=== PATIENT | male | born 1955 | race Caucasian/White ===

== ENCOUNTER 2018-08-26 17:51 | Outpatient (REF) | payer MEDICARE, SELFPAY ==
[2018-08-26 22:31] LABS: ALT 51 U/L (12-78); AST 27 U/L (15-37); Albumin 4.2 g/dL (3.4-5.0); Alkaline Phosphatase 109 U/L (46-116); Anion Gap 9.6 mmol/L (3-11); BUN 18 mg/dL (7-18); Bilirubin, Total 0.5 mg/dL (0.2-1.0); CO2 28.4 mmol/L (21.0-32.0); CREATININE 1.08 mg/dL (0.70-1.30); Calcium 9.5 mg/dL (8.5-10.1); Chloride 104 mmol/L (98-107); Glucose 129 mg/dL (70-100); Potassium 4.5 mmol/L (3.5-5.1); Sodium 142 mmol/L (136-145); Total Protein 7.1 g/dL (6.4-8.2)
== END 2018-08-26 18:11 ==
LOC: NCHCN 17:51
PROVIDERS: PCP Family Medicine; Visit Provider Family Medicine
DX: E78.5 Hyperlipidemia, unspecified (principal); I10 Essential (primary) hypertension
CPT/HCPCS: 80053

== ENCOUNTER 2020-08-10 08:13 | Outpatient (REF) | payer MEDICARE, SELFPAY ==
[2020-08-10 22:39] LABS: ALT 35 U/L (16-63); AST 20 U/L (15-37); Albumin 4.2 g/dL (3.4-5.0); Alkaline Phosphatase 104 U/L (46-116); Anion Gap 7.8 mmol/L (3-11); BUN 15 mg/dL (7-18); Bilirubin, Total 0.3 mg/dL (0.2-1.0); CO2 28.2 mmol/L (21.0-32.0); CREATININE 1.29 mg/dL (0.70-1.30); Calcium 9.8 mg/dL (8.5-10.1); Calculated LDL 42 mg/dL (<100); Chloride 107 mmol/L (98-107); Cholesterol 102 mg/dL (<200); Estimated GFR 56.44 (mL/min/1.73m2); Glucose 147 mg/dL (74-106); HDL Cholesterol 48 mg/dL (40-60); Potassium 5.4 mmol/L (3.5-5.1); Sodium 143 mmol/L (136-145); Total Protein 7.4 g/dL (6.4-8.2); Triglyceride 62 mg/dL (<150)
[2020-08-10 22:44] LABS: Hemoglobin A1C 7.9 % (<5.7)
== END 2020-08-10 08:33 ==
LOC: NCHCN 08:13
PROVIDERS: PCP Family Medicine; Visit Provider Family Medicine
DX: E11.65 Type 2 diabetes mellitus with hyperglycemia (principal); E78.5 Hyperlipidemia, unspecified; I10 Essential (primary) hypertension
CPT/HCPCS: 80053; 80061; 83036

== ENCOUNTER 2020-09-22 12:21 | Outpatient (REF) | payer MEDICARE, SELFPAY ==
[2020-09-22 20:57] LABS: Anion Gap 9.5 mmol/L (3-11); BUN 19 mg/dL (7-18); CO2 27.5 mmol/L (21.0-32.0); CREATININE 1.21 mg/dL (0.70-1.30); Calcium 9.7 mg/dL (8.5-10.1); Chloride 106 mmol/L (98-107); Glucose 65 mg/dL (74-106); Potassium 4.9 mmol/L (3.5-5.1); Sodium 143 mmol/L (136-145)
== END 2020-09-22 12:41 ==
LOC: NCHCN 12:21
PROVIDERS: PCP Family Medicine; Visit Provider Family Medicine
DX: I10 Essential (primary) hypertension (principal); E78.5 Hyperlipidemia, unspecified; I35.8 Other nonrheumatic aortic valve disorders
CPT/HCPCS: 80048

== ENCOUNTER 2020-11-22 15:46 | Outpatient (REF) | payer MEDICARE, SELFPAY ==
[2020-11-22 21:56] LABS: COMMENT (LAB VIEW ONLY) 89.02 mg/dL; Microalb ug/mg Crea 13.3 ug/mg Cr
== END 2020-11-22 15:47 | disposition home or self-care (01) ==
LOC: NCHCN 15:46
PROVIDERS: PCP Family Medicine; Visit Provider Family Medicine
DX: E11.65 Type 2 diabetes mellitus with hyperglycemia (principal)
CPT/HCPCS: 82043; 82570

== ENCOUNTER 2021-05-23 16:48 | Outpatient (REF) | payer MEDICARE, SELFPAY ==
[2021-05-23 21:33] LABS: Calculated LDL 49 mg/dL (<100); Cholesterol 113 mg/dL (<200); HDL Cholesterol 46 mg/dL (40-60); Triglyceride 92 mg/dL (<150)
[2021-05-23 21:34] LABS: Hemoglobin A1C 7.7 % (<5.7)
[2021-05-23 21:57] LABS: Anion Gap 9.9 mmol/L (3-11); BUN 22 mg/dL (7-18); CO2 25.1 mmol/L (21.0-32.0); CREATININE 1.4 mg/dL (0.70-1.30); Chloride 105 mmol/L (98-107); Estimated GFR 51.18 (mL/min/1.73m2); Folate 12.6 ng/mL (8.6-20.0); Glucose 332 mg/dL (74-106); Potassium 4.3 mmol/L (3.5-5.1); Sodium 140 mmol/L (136-145); Vitamin B12 80 pg/mL (193-986)
== END 2021-05-23 16:49 | disposition home or self-care (01) ==
LOC: NCHCN 16:48
PROVIDERS: PCP Family Medicine; Referring Provider Family Medicine; Visit Provider Family Medicine
DX: I10 Essential (primary) hypertension (principal); E78.5 Hyperlipidemia, unspecified; D53.9 Nutritional anemia, unspecified; E11.65 Type 2 diabetes mellitus with hyperglycemia
CPT/HCPCS: 80048; 80061; 82607; 82746; 83036

== ENCOUNTER 2021-11-21 16:05 | Outpatient (REF) | payer MEDICARE, SELFPAY ==
[2021-11-21 14:58] LABS: HCT 44.6 % (40.0-50.0); HGB 14.3 g/dL (13.5-17.5); MCH 31.7 pg (27.0-33.0); MCHC 32.1 % (32.0-36.0); MCV 98.9 fL (80-95); MPV 11.1 fL (8.0-11.0); Platelet Count 337 10^3/uL (130-400); RBC 4.51 10^6/uL (4.36-5.78); RDW 14.2 % (11.8-14.1); RDW-SD 51.9 fL
[2021-11-21 16:00] LABS: Anion Gap 12.2 mmol/L (3-11); BUN 21 mg/dL (7-18); CO2 24.8 mmol/L (21.0-32.0); CREATININE 1.2 mg/dL (0.70-1.30); Calcium 10.1 mg/dL (8.5-10.1); Chloride 103 mmol/L (98-107); Glucose 111 mg/dL (74-106); Potassium 4.7 mmol/L (3.5-5.1); Sodium 140 mmol/L (136-145); Vitamin B12 859 pg/mL (193-986)
== END 2021-11-21 16:06 | disposition home or self-care (01) ==
LOC: NCHCN 16:05
PROVIDERS: PCP Family Medicine; Visit Provider Family Medicine
DX: E11.9 Type 2 diabetes mellitus without complications (principal); I10 Essential (primary) hypertension; E53.8 Deficiency of other specified B group vitamins
CPT/HCPCS: 80048; 85027; 82607

== ENCOUNTER 2022-02-20 20:12 | Outpatient (REF) | payer MEDICARE, SELFPAY ==
[2022-02-20 20:05] LABS: COMMENT (LAB VIEW ONLY) 53.65 mg/dL; Microalb ug/mg Crea 15.1 ug/mg Cr
== END 2022-02-20 20:13 | disposition home or self-care (01) ==
LOC: NCHCN 20:12
PROVIDERS: PCP Family Medicine; Visit Provider Family Medicine
DX: E11.9 Type 2 diabetes mellitus without complications (principal)
CPT/HCPCS: 82043; 82570

== ENCOUNTER 2022-07-20 11:58 | Outpatient (REF) | payer MEDICARE, SELFPAY ==
[2022-07-19 22:08] LABS: Anion Gap 11.1 mmol/L (3-11); BUN 18 mg/dL (7-18); CO2 23.9 mmol/L (21.0-32.0); CREATININE 1.2 mg/dL (0.70-1.30); Calcium 9.5 mg/dL (8.5-10.1); Chloride 103 mmol/L (98-107); Estimated GFR 67.53 (mL/min/1.73m2); Glucose 79 mg/dL (74-106); Potassium 4.3 mmol/L (3.5-5.1); Sodium 138 mmol/L (136-145)
== END 2022-07-20 11:59 | disposition home or self-care (01) ==
LOC: NCHCN 11:58
PROVIDERS: PCP Family Medicine; Visit Provider Family Medicine
DX: E11.9 Type 2 diabetes mellitus without complications (principal); I10 Essential (primary) hypertension
CPT/HCPCS: 80048

== ENCOUNTER 2023-01-03 12:32 | Outpatient (REF) | payer MEDICARE, SELFPAY ==
[2023-01-03 15:58] LABS: Anion Gap 10.9 mmol/L (3-11); BUN 26 mg/dL (7-18); CO2 25.1 mmol/L (21.0-32.0); CREATININE 1.5 mg/dL (0.70-1.30); Calcium 9.3 mg/dL (8.5-10.1); Chloride 105 mmol/L (98-107); Estimated GFR 51.35 (mL/min/1.73m2); Glucose 94 mg/dL (74-106); Potassium 4.3 mmol/L (3.5-5.1); Sodium 141 mmol/L (136-145)
[2023-01-03 16:39] LABS: COMMENT (LAB VIEW ONLY) 39.81 mg/dL; Microalb ug/mg Crea 10.6 ug/mg Cr
== END 2023-01-03 12:33 | disposition home or self-care (01) ==
LOC: NCHCN 12:32
PROVIDERS: PCP Family Medicine; Visit Provider Family Medicine
DX: E11.65 Type 2 diabetes mellitus with hyperglycemia (principal); I10 Essential (primary) hypertension
CPT/HCPCS: 80048; 82043; 82570

== ENCOUNTER 2023-01-16 22:10 | Outpatient (REF) | payer MEDICARE, SELFPAY ==
[2023-01-16 22:18] LABS: Anion Gap 10.3 mmol/L (3-11); BUN 30 mg/dL (7-18); CO2 24.7 mmol/L (21.0-32.0); CREATININE 1.3 mg/dL (0.70-1.30); Calcium 9.4 mg/dL (8.5-10.1); Chloride 103 mmol/L (98-107); Estimated GFR 60.96 (mL/min/1.73m2); Glucose 76 mg/dL (74-106); Potassium 4.5 mmol/L (3.5-5.1); Sodium 138 mmol/L (136-145)
== END 2023-01-16 22:11 | disposition home or self-care (01) ==
LOC: NCHCN 22:10
PROVIDERS: PCP Family Medicine; Visit Provider Internal Medicine
DX: E11.65 Type 2 diabetes mellitus with hyperglycemia (principal); M54.59 Other low back pain
CPT/HCPCS: 80048

== ENCOUNTER 2023-02-28 15:49 | Outpatient (REF) | payer MEDICARE, SELFPAY ==
[2023-02-28 15:11] LABS: Anion Gap 14.5 mmol/L (3-11); BUN 14 mg/dL (7-18); CO2 22.5 mmol/L (21.0-32.0); CREATININE 1.5 mg/dL (0.70-1.30); Chloride 108 mmol/L (98-107); Estimated GFR 51.35 (mL/min/1.73m2); Glucose 244 mg/dL (74-106); Potassium 4.2 mmol/L (3.5-5.1); Sodium 145 mmol/L (136-145)
== END 2023-02-28 15:50 | disposition home or self-care (01) ==
LOC: NCHCN 15:49
PROVIDERS: PCP Family Medicine; Visit Provider Family Medicine
DX: I10 Essential (primary) hypertension (principal)
CPT/HCPCS: 80048

== ENCOUNTER 2023-05-07 09:00 | Outpatient (REF) | payer MEDICARE, SELFPAY ==
[2023-05-07 14:25] LABS: Anion Gap 11.8 mmol/L (3-11); BUN 29 mg/dL (7-18); CO2 20.2 mmol/L (21.0-32.0); CREATININE 1.4 mg/dL (0.70-1.30); Calcium 9.2 mg/dL (8.5-10.1); Chloride 107 mmol/L (98-107); Estimated GFR 55.78 (mL/min/1.73m2); Glucose 127 mg/dL (74-106); Potassium 4.9 mmol/L (3.5-5.1); Sodium 139 mmol/L (136-145)
== END 2023-05-07 09:01 | disposition home or self-care (01) ==
LOC: NCHCN 09:00
PROVIDERS: PCP Family Medicine; Visit Provider Family Medicine
DX: R94.4 Abnormal results of kidney function studies (principal); I10 Essential (primary) hypertension; E11.9 Type 2 diabetes mellitus without complications
CPT/HCPCS: 80048

== ENCOUNTER 2023-11-22 15:02 | Outpatient (REF) | payer MEDICARE, SELFPAY ==
[2023-11-22 14:28] LABS: HCT 38.9 % (40.0-50.0); HGB 12.6 g/dL (13.5-17.5); MCH 31.3 pg (27.0-33.0); MCHC 32.4 % (32.0-36.0); MCV 97 fL (80-95); MPV 10.5 fL (8.0-11.0); Platelet Count 383 10^3/uL (130-400); RBC 4.03 10^6/uL (4.36-5.78); RDW 13.9 % (11.8-14.1); RDW-SD 49.1 fL; WBC 7.32 10^3/uL (4.4-10.8)
[2023-11-22 14:36] LABS: Anion Gap 11.8 mmol/L (3-11); BUN 22 mg/dL (7-18); CO2 24.2 mmol/L (21.0-32.0); CREATININE 1.5 mg/dL (0.70-1.30); Calcium 9.9 mg/dL (8.5-10.1); Chloride 105 mmol/L (98-107); Estimated GFR 51.35 (mL/min/1.73m2); Glucose 158 mg/dL (74-106); Potassium 4.8 mmol/L (3.5-5.1); Sodium 141 mmol/L (136-145)
[2023-11-22 14:47] LABS: Hemoglobin A1C 11.6 % (<5.7)
[2023-11-22 16:17] LABS: COMMENT (LAB VIEW ONLY) 51.16 mg/dL
== END 2023-11-22 15:03 | disposition home or self-care (01) ==
LOC: NCHCN 15:02
PROVIDERS: PCP Family Medicine; Visit Provider Family Medicine
DX: D64.9 Anemia, unspecified (principal); E11.9 Type 2 diabetes mellitus without complications; I10 Essential (primary) hypertension
CPT/HCPCS: 80048; 85027; 82043; 82570; 83036

== ENCOUNTER 2023-12-24 12:33 | Outpatient (REF) | payer MEDICARE, SELFPAY ==
[2023-12-24 15:11] LABS: HCT 40.2 % (40.0-50.0); HGB 13.1 g/dL (13.5-17.5); MCHC 32.6 % (32.0-36.0); MCV 98 fL (80-95); MPV 10.8 fL (8.0-11.0); Platelet Count 442 10^3/uL (130-400); RDW 14.5 % (11.8-14.1); WBC 6.83 10^3/uL (4.4-10.8)
[2023-12-24 15:51] LABS: Vitamin D 25 Total 13.5 ng/mL (30-100)
[2023-12-24 15:57] LABS: Anion Gap 11.4 mmol/L (3-11); BUN 23 mg/dL (7-18); CO2 26.6 mmol/L (21.0-32.0); CREATININE 1.3 mg/dL (0.70-1.30); Calcium 9.8 mg/dL (8.5-10.1); Chloride 106 mmol/L (98-107); Estimated GFR 60.59 (mL/min/1.73m2); Folate 19.3 ng/mL (8.6-20.0); Glucose 223 mg/dL (74-106); Potassium 4.6 mmol/L (3.5-5.1); Sodium 144 mmol/L (136-145); TSH (W/Ref FT4) 1.54 uIU/mL (0.36-3.74); Vitamin B12 305 pg/mL (193-986)
== END 2023-12-24 12:34 | disposition home or self-care (01) ==
LOC: NCHCN 12:33
PROVIDERS: PCP Family Medicine; Visit Provider Family Medicine
DX: D64.9 Anemia, unspecified (principal); N18.9 Chronic kidney disease, unspecified
CPT/HCPCS: 80048; 82306; 85027; 82607; 82746; 84443

== ENCOUNTER 2024-06-25 17:40 | Outpatient (REF) | payer MEDICARE, SELFPAY ==
[2024-06-25 16:42] LABS: HCT 42.2 % (40.0-50.0); HGB 13.6 g/dL (13.5-17.5); MCHC 32.2 % (32.0-36.0); MCV 96 fL (80-95); Platelet Count 322 10^3/uL (130-400); RBC 4.39 10^6/uL (4.36-5.78); RDW 14.2 % (11.8-14.1); RDW-SD 49.9 fL; WBC 6.92 10^3/uL (4.4-10.8)
[2024-06-25 17:56] LABS: ALT 28 U/L (16-63); AST 28 U/L (15-37); Albumin 3.8 g/dL (3.4-5.0); Alkaline Phosphatase 111 U/L (46-116); Anion Gap 12.7 mmol/L (3-11); BUN 13 mg/dL (7-18); Bilirubin, Total 0.36 mg/dL (0.2-1.0); CO2 23.3 mmol/L (21.0-32.0); CREATININE 1.4 mg/dL (0.70-1.30); Calcium 9.5 mg/dL (8.5-10.1); Calculated LDL 17 mg/dL (<100); Chloride 108 mmol/L (98-107); Cholesterol 81 mg/dL (<200); Estimated GFR 55.43 (mL/min/1.73m2); Glucose 268 mg/dL (74-106); HDL Cholesterol 41 mg/dL (40-60); Potassium 4.5 mmol/L (3.5-5.1); Sodium 144 mmol/L (136-145); Total Protein 7.9 g/dL (6.4-8.2); Triglyceride 116 mg/dL (<150)
== END 2024-06-25 17:41 | disposition home or self-care (01) ==
LOC: NCHCN 17:40
PROVIDERS: PCP Family Medicine; Visit Provider Family Medicine
DX: E78.5 Hyperlipidemia, unspecified (principal); E55.9 Vitamin D deficiency, unspecified
CPT/HCPCS: 80053; 80061; 82306; 85027

== ENCOUNTER 2025-01-22 21:12 | Outpatient (REF) | payer MEDICARE, SELFPAY ==
[2025-01-22 21:54] LABS: COMMENT (LAB VIEW ONLY) 45.47 mg/dL
[2025-01-22 21:55] LABS: Microalb ug/mg Crea 473.9 ug/mg Cr
== END 2025-01-22 21:13 | disposition home or self-care (01) ==
LOC: NCHCN 21:12
PROVIDERS: PCP Family Medicine; Visit Provider Family Medicine
DX: E11.9 Type 2 diabetes mellitus without complications (principal)
CPT/HCPCS: 82043; 82570

== ENCOUNTER 2025-03-23 18:06 | Outpatient (REF) | payer MEDICARE, SELFPAY ==
[2025-03-23 21:28] LABS: HCT 43.2 % (40.0-50.0); HGB 13.9 g/dL (13.5-17.5); MCH 31.5 pg (27.0-33.0); MCHC 32.2 % (32.0-36.0); MCV 98 fL (80-95); MPV 12.1 fL (8.0-11.0); Platelet Count 253 10^3/uL (130-400); RBC 4.41 10^6/uL (4.36-5.78); RDW 14.0 % (11.8-14.1); RDW-SD 50.5 fL; WBC 9.30 10^3/uL (4.4-10.8)
[2025-03-23 21:40] LABS: Glucose 250 mg/dL (Negative)
[2025-03-23 21:49] LABS: WBC 0-2 HPF (0-5)
[2025-03-23 21:50] LABS: C & S Indicated? No
[2025-03-23 21:58] LABS: ALT 41 U/L (16-63); AST 36 U/L (15-37); Albumin 4.4 g/dL (3.4-5.0); Alkaline Phosphatase 135 U/L (46-116); Anion Gap 15.5 mmol/L (3-11); BUN 21 mg/dL (7-18); Bilirubin, Total 0.4 mg/dL (0.2-1.0); CO2 21.5 mmol/L (21.0-32.0); Calcium 9.9 mg/dL (8.5-10.1); Chloride 104 mmol/L (98-107); Estimated GFR 55.09 (mL/min/1.73m2); Glucose 244 mg/dL (74-106); Potassium 5.1 mmol/L (3.5-5.1); Sodium 141 mmol/L (136-145); TSH (W/Ref FT4) 2.11 uIU/mL (0.36-3.74); Total Protein 8.4 g/dL (6.4-8.2)
== END 2025-03-23 18:07 | disposition home or self-care (01) ==
LOC: NCHCN 18:06
PROVIDERS: PCP Family Medicine; Visit Provider Family Medicine
DX: R36.1 Hematospermia (principal); R60.0 Localized edema; Z86.2 Personal history of diseases of the blood and blood-forming organs and certain disorders involving the immune mechanism
CPT/HCPCS: 80053; 85027; 81003; 81015; 84443

== ENCOUNTER 2025-08-17 19:48 | Outpatient (REF) | payer MEDICARE, SELFPAY ==
[2025-08-17 21:09] LABS: HCT 44.4 % (40.0-50.0); HGB 14.6 g/dL (13.5-17.5); MCH 32.3 pg (27.0-33.0); MCHC 32.9 % (32.0-36.0); MCV 98 fL (80-95); MPV 11.1 fL (8.0-11.0); Platelet Count 331 10^3/uL (130-400); RBC 4.52 10^6/uL (4.36-5.78); RDW 13.5 % (11.8-14.1); RDW-SD 49.0 fL; WBC 8.90 10^3/uL (4.4-10.8)
[2025-08-17 21:20] LABS: Magnesium 2.0 mg/dL (1.6-2.6)
[2025-08-17 21:21] LABS: Anion Gap 13.5 mmol/L (3-11); BUN 22 mg/dL (9-23); CO2 22.5 mmol/L (20.0-31.0); Calcium 9.7 mg/dL (8.3-10.6); Chloride 104 mmol/L (98-107); Glucose 172 mg/dL (74-106); Potassium 4.5 mmol/L (3.5-5.1); Sodium 140 mmol/L (136-145)
[2025-08-17 21:22] LABS: TSH (W/Ref FT4) 2.01 uIU/mL (0.55-4.78)
== END 2025-08-17 19:49 | disposition home or self-care (01) ==
LOC: NCHCN 19:48
PROVIDERS: PCP Family Medicine; Visit Provider Family Medicine
DX: R00.2 Palpitations (principal)
CPT/HCPCS: 80048; 85027; 83735; 84443